=== PATIENT | male | born 1965 | race Caucasian/White ===

== ENCOUNTER 2018-07-14 10:42 | Emergency (ER) | payer OTHER ==
[~2018-07-14] VITALS: Ht 167.6 cm; Wt 78.2 kg
[2018-07-14 11:31] VITALS: BP 162/99; PULSE 81; RESP 16; Ht 167.6 cm; Wt 78.2 kg
--- NOTE | 2018-07-14 12:15 | ERD ---
ER Documentation Chief Complaint Chief Complaint c/o right knee pain x6 months, Hx: Arthritis HPI Patient is a 52-year-old male with past medical history of RA, presents to the ER for concerns of right knee pain x6 months. Patient denies any falls or trauma. Patient is even taking xvjr-ibl-eefrert medication with minimal alleviation of pain. Patient denies any fevers or chills. 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 ROS All systems reviewed and are negative except as per history of present illness. Medications Home Meds Active Scripts Naproxen* (Naprosyn*) 500 Mg Tablet, 500 MG PO BID PRN for PAIN AND/OR INFLAMMATION, #30 TAB Prov:ARCHANAROLF-Mary 07/14/18 Tramadol HCl (Tramadol HCl) 50 Mg Tablet, 50 MG PO Q6 PRN for PAIN, #10 TAB Prov:ARCHANAROLF PA-C 07/14/18 FmHx Family History: No diabetes Physical Exam Vitals Vital Signs Date Temp Pulse Resp B/P (MAP) Pulse Ox O2 O2 Flow FiO2 Time Delivery Rate 07/14/18 99.7 81 16 162/99 96 11:31 (120) Physical Exam GENERAL: Well-developed, well-nourished male. Appears in no acute distress. HEAD: Normocephalic, atraumatic. EYES: Pupils are equally reactive bilaterally. EOMs grossly intact. No conjunct ival erythema. ENT: Moist mucous membranes. No uvula deviation. No kissing tonsils. NECK: Supple. No meningismus. Normal range of motion of the neck. LUNG: Clear to auscultation bilaterally. No rhonchi, wheezing, rales or coarse breath sounds. HEART: Regular rate and rhythm. No murmurs, rubs or gallops. EXTREMITIES: Equal pulses bilaterally. No peripheral clubbing, cyanosis or e wilda. No unilateral leg swelling. NEUROLOGIC: Alert and oriented. Moving all four extremities without any difficulty. Normal speech. Steady gait. SKIN: Normal color. Warm and dry. No rashes or lesions. RLE: No deformity, erythema, ecchymosis. Mild swelling noted throughout the knee joint. Decreased range of motion secondary to pain. Skin intact. Tender to palpation over the anterior knee. Sensation intact to light touch. Neurovascularly intact. (Able to plantarflex, dorsiflex, valerio foot, invert foot, raise big toe.) 2+ DP and DT pulses. Procedures/MDM ED COURSE: The patient was stable throughout ED course. I kept the patient and/or family informed of laboratory and diagnostic imaging results throughout the ED course. DIAGNOSTIC IMAGING: Read by radiologist. Patient: FLACO TEIXEIRA : 1965 Age: 52 Sex: M MR #: [id number] DOS: 07/14/18 1211 Ordering MD: ROLF MAGAÑA PA-C Location: E/R Room/Bed: PROCEDURE: XR right knee CLINICAL INDICATION: Knee pain. TECHNIQUE: Three views of the right knee were obtained. COMPARISON: None. FINDINGS: There is no acute fracture or dislocation. The bone mineralization is decreased. Moderate to severe tricompartmental degenerative changes of the right knee are noted. There is a small knee joint effusion. IMPRESSION: 1. Osseous demineralization with moderate degenerative changes of the right knee. RPTAT: AAEE Physician Marilyn Date Time Electronically viewed and signed by Physician Marilyn on 07/14/2018 13:01 RF/ CC: ROLF MAGAÑA PA-C [id number] PROCEDURES: MEDICAL DECISION MAKING: This is a 52-year-old male with past medical history of RA presents the ER for concerns of right knee pain x6 months. Vital signs were reviewed. Patient was afebrile. Xrays showed Osseous demineralization with moderate degenerative changes of the right knee. Patient was given Justino wrap for comfort measures. Patient was advised to follow-up with nutrient management specialist. Referral information provided. At this time, the patient's presentation is most consistent with knee pain likely due to degenerative joint changes. Low suspicion for fracture, dislocation, septic joint, compartment syndrome. At this time, unable to rule out any meniscus and knee ligament injuries. PRESCRIPTIONS: Tramadol, naproxen Patient advised not to take tramadol when driving or operating any machinery. DISCHARGE: At this time, patient is stable for discharge and outpatient management. RICE therapy and ROM exercises were advised to avoid stiffness. I have instructed the patient to follow-up with his/her primary care physician in 1-2 days. I have discussed with the patient the possibility of needing to see an nutrient management specialist for further workup and imaging if the pain persists. I have instructed the patient to promptly return to the ER for any new or worsening symptoms including increased pain, swelling, redness, warmth or fever. The patient and/or family expressed understanding of and agreement with this plan. All questions were answered. Home care instructions were provided. Patients blood pressure was elevated (>120/80) but appears stable without evidence of hypertensive emergency, hypertensive urgency or end-organ failure. I had discussion with the patient about the risks of hypertension. I have advised the patient to follow up with his/her primary care physician for outpatient monitoring and treatment for hypertension in 2-3 days. I have instructed the patient to return to the ER for any new or worsening symptoms including chest pain, shortness of breath, headache, blurred vision, confusion, nausea, vomiting or LOC. Disclaimer: Inadvertent spelling and grammatical errors are likely due to EHR/dictation software use and do not reflect on the overall quality of patient care. Also, please note that the electronic time recorded on this note does not necessarily reflect the actual time of the patient encounter. Departure Diagnosis: Primary Impression: Knee pain Chronicity: chronic Laterality: right Qualified Codes: M25.561 - Pain in right knee; G89.29 - Other chronic pain Condition: Fair Patient Instructions: Knee Pain, Uncertain Cause Additional Instructions: Llame al doctor TALHA y karen marbella SILAS PARA DENTRO DE 1-2 NICOLE.Dgale a la secretaria que nosotros le instruimos hacer esta silas.Avise o llame si salas condicin se empeora antes de la silas. Regresa aqui si peor o no mejor. ROLF MAGAÑA PA-C July 14, 2018 12:15
[2018-07-14] MEDS ORDERED: TRAM50TA2 PO (13:06)
[2018-07-14] MEDS ORDERED: NAPR-985 PO (13:07)
== END 2018-07-14 13:04 | disposition home or self-care (01) ==
LOC: E/R 10:42
DX: M25.561 Pain in right knee (principal)
CPT/HCPCS: 73562; Z7502